=== PATIENT | male | born 1950 | race Caucasian/White ===

== ENCOUNTER → 2017-05-24 | Outpatient (CLI) | payer OTHER ==
--- NOTE | 2017-05-24 10:27 | US ---
EXAMINATION TYPE: US abdomen complete DATE OF EXAM: 05/24/2017 COMPARISON: 03/24/2016 CLINICAL HISTORY: 66-year-old male R93.429 Abnormal radiologic findings on diagnostic. TECHNIQUE: Multiple sonographic images of the abdomen were obtained. FINDINGS: LICENSED PRACTICAL NURSE NOTES: Extensive overlying bowel gas Liver Length: 12.7 cm Gallbladder Wall: 0.3 cm CBD: 0.3 cm Spleen: 7.8 cm Right Kidney: 11.9 x 4.4 x 6.1 cm Left Kidney: 10.9 x 5.0 x 5.2 cm Pancreas: Obscured by bowel gas Liver: left lobe obscured by overlying bowel gas. The right lobe shows normal homogeneous echotextur e without focal lesion. Gallbladder: No abnormal gallbladder distention, wall thickening, pericholecystic fluid, or shadowin g calculi. Evidence for sonographic Garcia's sign: No CBD: wnl Spleen: not well visualized due to overlying bowel gas and position Right Kidney: No hydronephrosis. There is a 5.1 x 5.3 x 4.6 cm cyst in the upper pole with thin inter nal septation. This measured up to 5 cm on 03/24/2016 and 5.9 cm on 09/20/2016. The calcifications seen on CT are not as appreciable on ultrasound. There is a smaller 1 cm cortical cyst at the lower pole. Left Kidney: No hydronephrosis Upper IVC: wnl Abd Aorta: proximal portion not well seen, distal portion and bifurcation obscured by bowel gas IMPRESSION: 1. Bosniak class IIF, 5.3 cm right upper pole renal cyst. This has been stable since 03/24/2016. Guidel jules recommend subsequent yearly follow-up for 5 years. 2. Suboptimal visualization of the left hepatic lobe, distal abdominal aorta, and pancreas.
== END ==
LOC: RADUSWWP 08:13
PROVIDERS: ATTEND Family Medicine
DX: N28.1 Cyst of kidney, acquired (principal)
CPT/HCPCS: 76700

== ENCOUNTER → 2018-05-08 | Outpatient (CLI) | payer OTHER ==
--- NOTE | 2018-05-08 15:37 | US ---
EXAMINATION TYPE: US kidneys/renal and bladder DATE OF EXAM: 05/08/2018 COMPARISON: US 05/24/2017 CLINICAL HISTORY: I70.213Atherosclerosis, N28.1 Kidney cyst. EXAM MEASUREMENTS: Right Kidney: 11.6 x 6.4 x 5.5 cm Left Kidney: 10.4 x 5.4 x 5.1 cm Post Void Residual Volume: 6.7 mL Right Kidney: Septated cyst with echogenic maciel = 5.9 x 5.8 x 5.1 cm . This previously measured 5.1 x 5.3 x 4.6 cm on the exam of 05/24/2017. Left Kidney: wnl Bladder: wnl Bilateral Jets seen: Yes Normal Post Void Residual: Yes There is no evidence for hydronephrosis at this point in time. No nephrolithiasis is seen. The ur inary bladder is anechoic. Bilateral ureteral jets are seen. Splenic mass noted = 5.6x 6.7 x 5.4 cm. This is complex in echogenicity with multiple internal septat ions. IMPRESSION: 1. New complex splenic mass. This was not present on the prior CT of 09/20/2016. Initially further carla luation with three-phase enhanced CT is recommended to assess for enhancement. This could be neoplast ic or posttraumatic in the setting of prior injury. 2. Interval growth of the Bosniak IIF right renal cystic mass. Evaluation of septal enhancement can a lso be made on the above recommended CT. If there are concerning features at that time biopsy would b e recommended.
== END | disposition home or self-care (01) ==
LOC: RADUSWWP 08:48
DX: N28.89 Other specified disorders of kidney and ureter (principal); I70.213 Atherosclerosis of native arteries of extremities with intermittent claudication, bilateral legs
CPT/HCPCS: 76770; 93923

== ENCOUNTER → 2018-05-23 | Outpatient (CLI) | payer OTHER ==
--- NOTE | 2018-05-24 06:54 | CT ---
EXAMINATION TYPE: CT abdomen pelvis wo/w con DATE OF EXAM: 05/23/2018 COMPARISON: Prior CT abdomen and pelvis September 20, 2016 HISTORY: Right kidney cyst CT DLP: 1247.9 mGycm, Automated Exposure Control for Dose Reduction was Utilized. CONTRAST: CT scan of the abdomen and pelvis is performed without oral and without and with IV Contrast, patient injected with 100 mL of Isovue 300. FINDINGS: LUNG BASES: There is calcified 1.0 cm nodule or granuloma posteriorly in the right lung base axial im age 5 redemonstrated. Small to tiny anterior pericardial effusion axial image 1 there is slightly mor e prominent versus prior. There is partial visualization of three-vessel coronary artery calcificatio n which is noted marker for coronary artery disease. LIVER/GB: No significant abnormality is appreciated. PANCREAS: No significant abnormality is seen. SPLEEN: Centrally in the spleen there is new hypodense 5.3 x 3.5 cm area of predominantly nonenhancem ent, some areas of linear enhancement that are isodense to the surrounding spleen are noted. One must consider vascular insult or infarct to the central aspect of the spleen as possible etiology. ADRENALS: Slight thickening to both adrenal glands left worse than right is redemonstrated and stable favoring benign hyperplasia. KIDNEYS: Noncontrast images show central vascular calcifications in the left kidney. No definitive ne phrolithiasis. Post contrast images show symmetric cortical medullary uptake and excretion. There are new areas of cortical scarring in the left kidney mid and lower pole level appreciated on coronal im ages. Small areas of cortical scarring suspected right kidney for example lower pole level coronal im age 48 new from prior. There is redemonstration of dominant partially exophytic thin-walled cystic le zafar mid pole level right kidney measuring 5.8 x 5.6 cm on axial image 33 with some calcified thin se ptation anteriorly. No suspicious enhancement or nodularity identified. There are additional few smal l subcentimeter hypodense lesions scattered throughout both kidneys too small to further characterize but presumed benign. BOWEL: Diverticula are scattered throughout the left and proximal sigmoid colon. No CT evidence for a cute diverticulitis. PROSTATE/SEMINAL VESICLES: No gross abnormality seen. LYMPH NODES: No greater than 1cm abdominal or pelvic lymph nodes are appreciated. OSSEOUS STRUCTURES: There is moderate multilevel disc space narrowing mid to lower lumbar spine with vacuum disc phenomenon L5-S1 level. Some facet arthropathy lower lumbar levels is seen. OTHER: There is moderate to severe calcified plaque of the mid to distal abdominal aorta extending in to pelvic branch vessels. 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 IMPRESSION: 1. Stable appearance of partially exophytic thin-walled 5.8 cm cyst mid pole level right kidney with thin calcified septations anteriorly. Bosniak 2 or 2F lesion because of size. No new worrisome solid or cystic renal mass. 2. Note is made of new areas of infarction at several levels in the bilateral kidneys right worse on left and likely infarction or liquefactive necrosis involving the central spleen. One must exclude th romboembolic disease or product of moderate to severe atherosclerotic change. Further clinical workup advised.
== END | disposition home or self-care (01) ==
LOC: RADCTMAIN 14:59
PROVIDERS: ATTEND Physician Assistant Medical
DX: N28.0 Ischemia and infarction of kidney (principal); N28.1 Cyst of kidney, acquired; D73.9 Disease of spleen, unspecified
CPT/HCPCS: 74178; Q9967

== ENCOUNTER 2018-10-04 10:03 | Inpatient (IN) | payer MEDICARE, OTHER ==
[2018-10-04] MEDS ORDERED: LIDOCAINE 2% SYG (PF) 100 MG/5 ML IV STA (10:08)
[2018-10-04] MEDS ORDERED: MIDAZOLAM 1 MG/ML 5 ML VIAL IV STA (10:09)
[2018-10-04] MEDS ORDERED: SUCCINYLCHOLINE CHLORIDE VIAL 200 MG/10 ML VIAL IV STA (10:10)
[2018-10-04] MEDS ORDERED: SODIUM CHLORIDE 0.9% 1,000 ML IV STA (10:11)
[2018-10-04] MEDS ORDERED: levETIRAcetam IV 1,000 MG in SALINE 1 100ML.BAG IVPB STA (10:13)
[2018-10-04] MEDS ORDERED: PROPOFOL 1,000 MG in EMPTY BAG 1 BAG IV SCH (10:15)
--- NOTE | 2018-10-04 10:21 | ED ---
Altered Mental Status HPI - General Stated Complaint: unresponsive Time Seen by Provider: 10/04/18 10:11 Source: EMS, RN notes reviewed, old records reviewed Mode of arrival: EMS Limitations: altered mental status - History of Present Illness Initial Comments: This is a 68-year-old male presents to the ER today for evaluation regarding altered mental status. Patient is unresponsive. Brought in by EMS, per EMS patient was found having seizure-like activity. Josiah Helms window, there is able to extricate him from the morning and bring him to the emergency department. No history is known from this patient. MD Complaint: altered mental status -: minutes(s) Severity: severe Consistency of Symptoms: constant Context: seizure disorder, unknown Associated Symptoms: denies other symptoms, weakness Treatments Prior to Arrival: IV fluid, oxygen - Related Data Home Medications Medication Instructions Recorded Confirmed Acetaminophen Tab [Tylenol] 1,000 mg PO Q6H PRN 05/12/16 10/04/18 Albuterol Inhaler [Ventolin Hfa 2 puff INHALATION RT-Q6H PRN 05/12/16 10/04/18 Inhaler] Budesonide/Formoterol Fumarate 2 puff INHALATION RT-BID 05/12/16 10/04/18 [Symbicort 160-4.5 Mcg Inhaler] Carvedilol [Coreg] 6.25 mg PO BID 05/12/16 10/04/18 Ipratropium-Albuterol Nebulize 3 ml INHALATION RT-Q6H PRN 05/12/16 10/04/18 [Duoneb 0.5 mg-3 mg/3 ml Soln] Simvastatin [Zocor] 20 mg PO DAILY 05/12/16 10/04/18 Valsartan [Diovan] 40 mg PO DAILY 05/12/16 10/04/18 Pantoprazole Sodium [Protonix] 40 mg PO DAILY 10/04/18 10/04/18 Allergies Allergy/AdvReac Type Severity Reaction Status Date / Time No Known Allergies Allergy Verified 10/04/18 11:10 Review of Systems ROS Statement: Those systems with pertinent positive or pertinent negative responses have been documented in the HPI. ROS Other: All systems not noted in ROS Statement are negative. Past Medical History Past Medical History: COPD, Hyperlipidemia, Hypertension, Myocardial Infarction ([place]) History of Any Multi-Drug Resistant Organisms: None Reported Past Surgical History: Heart Catheterization, Heart Catheterization With Stent Past Psychological History: PTSD Smoking Status: Heavy tobacco smoker Past Alcohol Use History: Occasional Past Drug Use History: None Reported General Exam Limitations: altered mental status General appearance: obtunded, in distress Head exam: Present: atraumatic, normocephalic, normal inspection Eye exam: Present: normal appearance, PERRL, EOMI. Absent: scleral icterus, conjunctival injection, periorbital swelling Pupils: Present: other (Left Pupil is dilated right pupil reactive) ENT exam: Present: normal exam, mucous membranes moist Neck exam: Present: normal inspection. Absent: tenderness, meningismus, lymphadenopathy Respiratory exam: Present: normal lung sounds bilaterally. Absent: respiratory distress, wheezes, rales, rhonchi, stridor Cardiovascular Exam: Present: normal rhythm, tachycardia, normal heart sounds. Absent: systolic murmur, diastolic murmur, rubs, gallop, clicks GI/Abdominal exam: Present: soft, normal bowel sounds. Absent: distended, tenderness, guarding, rebound, rigid Extremities exam: Present: normal inspection, full ROM, normal capillary refill. Absent: tenderness, pedal edema, joint swelling, calf tenderness Back exam: Present: normal inspection Neurological exam: Present: alert, oriented X3, CN II-XII intact Psychiatric exam: Present: normal affect, normal mood Skin exam: Present: warm, dry, intact, normal color. Absent: rash Course Vital Signs 10/04/18 10/04/18 10/04/18 10:03 10:07 10:12 Temperature 97.3 F L Pulse Rate 110 H 95 106 H Respiratory 6 L 24 14 Rate Blood Pressure 173/96 224/146 O2 Sat by Pulse 98 Oximetry 10/04/18 10/04/18 10/04/18 10:20 10:30 10:38 Temperature Pulse Rate 102 H 110 H Respiratory 14 14 Rate Blood Pressure 184/121 184/121 170/92 O2 Sat by Pulse 97 99 Oximetry 10/04/18 10/04/18 10/04/18 10:45 11:00 11:30 Temperature Pulse Rate 108 H 111 H 106 H Respiratory 16 16 15 Rate Blood Pressure 168/100 168/100 109/93 O2 Sat by Pulse 100 99 99 Oximetry 10/04/18 10/04/18 10/04/18 12:00 12:26 13:10 Temperature Pulse Rate 109 H 109 H 110 H Respiratory 17 17 16 Rate Blood Pressure 149/103 149/103 151/95 O2 Sat by Pulse 100 100 99 Oximetry 10/04/18 10/04/18 13:15 13:25 Temperature Pulse Rate 109 H 108 H Respiratory 16 18 Rate Blood Pressure 165/95 153/82 O2 Sat by Pulse 99 99 Oximetry - Reevaluation(s) Reevaluation #1: 10/04/18 10:21 Medical record is reviewed noncontributory Reevaluation #2: 10/04/18 13:44 Patient will be admitted for further evaluation, neurological consultation and evaluation. Reevaluation #3: 10/04/18 13:44 Spoke with family at length, questions are answered, Procedures - Intubation Time Out Performed: Yes Sedative: Versed Paralytic: Succinylcholine Laryngoscope: Liz Size: 4 ET Tube Size: 8 ET Tube Uncuffed: No Tube Secured Location: teeth Tube Placement Confirmation: visualized tube passing through cords, equal breath sounds bilaterally Patient Tolerated Procedure: well Intubation Complications: none Medical Decision Making - Medical Decision Making 68 male the ER for evaluation of likely seizure per bystander, and unresponsive episode with likely prolonged postictal, patient elevated for airway protection , patient to be admitted ICU for evaluation and management - Lab Data Result diagrams: 10/04/18 10:20 10/04/18 10:20 Lab Results 10/04/18 10/04/18 10/04/18 Range/Units 10:20 10:20 10:20 WBC (3.8-10.6) k/uL RBC (4.30-5.90) m/uL Hgb (13.0-17.5) gm/dL Hct (39.0-53.0) % MCV (80.0-100.0) fL MCH (25.0-35.0) pg MCHC (31.0-37.0) g/dL RDW (11.5-15.5) % Plt Count (150-450) k/uL Neutrophils % % Lymphocytes % % Monocytes % % Eosinophils % % Basophils % % Neutrophils # (1.3-7.7) k/uL Lymphocytes # (1.0-4.8) k/uL Monocytes # (0-1.0) k/uL Eosinophils # (0-0.7) k/uL Basophils # (0-0.2) k/uL PT (9.0-12.0) sec INR (<1.2) APTT (22.0-30.0) sec Sample Site ABG pH (7.35-7.45) ABG pCO2 (35-45) mmHg ABG pO2 (83-108) mmHg ABG HCO3 (21-25) mmol/L ABG Total CO2 (19-24) mmol/L ABG O2 Saturation (94-97) % ABG Base Excess mmol/L Harshad Test FiO2 % Sodium 137 (137-145) mmol/L Potassium 5.1 (3.5-5.1) mmol/L Chloride 104 (98-107) mmol/L Carbon Dioxide 22 (22-30) mmol/L Anion Gap 11 mmol/L BUN 7 L (9-20) mg/dL Creatinine 0.70 (0.66-1.25) mg/dL Est GFR (CKD-EPI)AfAm >90 (>60 ml/min/1.73 sqM) Est GFR (CKD-EPI)NonAf >90 (>60 ml/min/1.73 sqM) Glucose 98 (74-99) mg/dL Plasma Lactic Acid Roland 2.0 (0.7-2.0) mmol/L Calcium 9.3 (8.4-10.2) mg/dL Phosphorus 3.8 (2.5-4.5) mg/dL Magnesium 2.0 (1.6-2.3) mg/dL Total Bilirubin 0.6 (0.2-1.3) mg/dL AST 16 L (17-59) U/L ALT 16 L (21-72) U/L Alkaline Phosphatase 83 (38-126) U/L Ammonia 24 (<30) umol/L Total Creatine Kinase 65 (55-170) U/L CK-MB (CK-2) 1.3 (0.0-2.4) ng/mL CK-MB (CK-2) Rel Index 2.0 Troponin I <0.012 (0.000-0.034) ng/mL NT-Pro-B Natriuret Pep pg/mL Total Protein 8.0 (6.3-8.2) g/dL Albumin 4.4 (3.5-5.0) g/dL Urine Color Urine Appearance (Clear) Urine pH (5.0-8.0) Ur Specific [place] (1.001-1.035) Urine Protein (Negative) Urine Glucose (UA) (Negative) Urine Ketones (Negative) Urine Blood (Negative) Urine Nitrite (Negative) Urine Bilirubin (Negative) Urine Urobilinogen (<2.0) mg/dL Ur Leukocyte Esterase (Negative) Urine RBC (0-5) /hpf Urine WBC (0-5) /hpf Urine Bacteria (None) /hpf Urine Opiates Screen (NotDetected) Ur Oxycodone Screen (NotDetected) Urine Methadone Screen (NotDetected) Ur Propoxyphene Screen (NotDetected) Ur Barbiturates Screen (NotDetected) U Tricyclic Antidepress (NotDetected) Ur Phencyclidine Scrn (NotDetected) Ur Amphetamines Screen (NotDetected) U Methamphetamines Scrn (NotDetected) U Benzodiazepines Scrn (NotDetected) Urine Cocaine Screen (NotDetected) U Marijuana (THC) Screen (NotDetected) Serum Alcohol <10 mg/dL 10/04/18 10/04/18 10/04/18 Range/Units 10:20 10:20 10:20 WBC 9.2 (3.8-10.6) k/uL RBC 5.04 (4.30-5.90) m/uL Hgb 14.6 (13.0-17.5) gm/dL Hct 45.2 (39.0-53.0) % MCV 89.7 (80.0-100.0) fL MCH 29.0 (25.0-35.0) pg MCHC 32.4 (31.0-37.0) g/dL RDW 14.8 (11.5-15.5) % Plt Count 273 (150-450) k/uL Neutrophils % 62 % Lymphocytes % 26 % Monocytes % 8 % Eosinophils % 2 % Basophils % 1 % Neutrophils # 5.6 (1.3-7.7) k/uL Lymphocytes # 2.4 (1.0-4.8) k/uL Monocytes # 0.8 (0-1.0) k/uL Eosinophils # 0.2 (0-0.7) k/uL Basophils # 0.1 (0-0.2) k/uL PT 9.7 (9.0-12.0) sec INR 0.9 (<1.2) APTT 26.6 (22.0-30.0) sec Sample Site ABG pH (7.35-7.45) ABG pCO2 (35-45) mmHg ABG pO2 (83-108) mmHg ABG HCO3 (21-25) mmol/L ABG Total CO2 (19-24) mmol/L ABG O2 Saturation (94-97) % ABG Base Excess mmol/L Harshad Test FiO2 % Sodium (137-145) mmol/L Potassium (3.5-5.1) mmol/L Chloride (98-107) mmol/L Carbon Dioxide (22-30) mmol/L Anion Gap mmol/L BUN (9-20) mg/dL Creatinine (0.66-1.25) mg/dL Est GFR (CKD-EPI)AfAm (>60 ml/min/1.73 sqM) Est GFR (CKD-EPI)NonAf (>60 ml/min/1.73 sqM) Glucose (74-99) mg/dL Plasma Lactic Acid Roland (0.7-2.0) mmol/L Calcium (8.4-10.2) mg/dL Phosphorus (2.5-4.5) mg/dL Magnesium (1.6-2.3) mg/dL Total Bilirubin (0.2-1.3) mg/dL AST (17-59) U/L ALT (21-72) U/L Alkaline Phosphatase (38-126) U/L Ammonia (<30) umol/L Total Creatine Kinase (55-170) U/L CK-MB (CK-2) (0.0-2.4) ng/mL CK-MB (CK-2) Rel Index Troponin I (0.000-0.034) ng/mL NT-Pro-B Natriuret Pep 215 pg/mL Total Protein (6.3-8.2) g/dL Albumin (3.5-5.0) g/dL Urine Color Urine Appearance (Clear) Urine pH (5.0-8.0) Ur Specific [place] (1.001-1.035) Urine Protein (Negative) Urine Glucose (UA) (Negative) Urine Ketones (Negative) Urine Blood (Negative) Urine Nitrite (Negative) Urine Bilirubin (Negative) Urine Urobilinogen (<2.0) mg/dL Ur Leukocyte Esterase (Negative) Urine RBC (0-5) /hpf Urine WBC (0-5) /hpf Urine Bacteria (None) /hpf Urine Opiates Screen (NotDetected) Ur Oxycodone Screen (NotDetected) Urine Methadone Screen (NotDetected) Ur Propoxyphene Screen (NotDetected) Ur Barbiturates Screen (NotDetected) U Tricyclic Antidepress (NotDetected) Ur Phencyclidine Scrn (NotDetected) Ur Amphetamines Screen (NotDetected) U Methamphetamines Scrn (NotDetected) U Benzodiazepines Scrn (NotDetected) Urine Cocaine Screen (NotDetected) U Marijuana (THC) Screen (NotDetected) Serum Alcohol mg/dL 10/04/18 10/04/18 Range/Units 11:00 12:43 WBC (3.8-10.6) k/uL RBC (4.30-5.90) m/uL Hgb (13.0-17.5) gm/dL Hct (39.0-53.0) % MCV (80.0-100.0) fL MCH (25.0-35.0) pg MCHC (31.0-37.0) g/dL RDW (11.5-15.5) % Plt Count (150-450) k/uL Neutrophils % % Lymphocytes % % Monocytes % % Eosinophils % % Basophils % % Neutrophils # (1.3-7.7) k/uL Lymphocytes # (1.0-4.8) k/uL Monocytes # (0-1.0) k/uL Eosinophils # (0-0.7) k/uL Basophils # (0-0.2) k/uL PT (9.0-12.0) sec INR (<1.2) APTT (22.0-30.0) sec Sample Site rrad ABG pH 7.40 (7.35-7.45) ABG pCO2 38 (35-45) mmHg ABG pO2 >400 H (83-108) mmHg ABG HCO3 23 (21-25) mmol/L ABG Total CO2 25 H (19-24) mmol/L ABG O2 Saturation 100.0 H (94-97) % ABG Base Excess -1.4 mmol/L Harshad Test Yes FiO2 100 % Sodium (137-145) mmol/L Potassium (3.5-5.1) mmol/L Chloride (98-107) mmol/L Carbon Dioxide (22-30) mmol/L Anion Gap mmol/L BUN (9-20) mg/dL Creatinine (0.66-1.25) mg/dL Est GFR (CKD-EPI)AfAm (>60 ml/min/1.73 sqM) Est GFR (CKD-EPI)NonAf (>60 ml/min/1.73 sqM) Glucose (74-99) mg/dL Plasma Lactic Acid Roland (0.7-2.0) mmol/L Calcium (8.4-10.2) mg/dL Phosphorus (2.5-4.5) mg/dL Magnesium (1.6-2.3) mg/dL Total Bilirubin (0.2-1.3) mg/dL AST (17-59) U/L ALT (21-72) U/L Alkaline Phosphatase (38-126) U/L Ammonia (<30) umol/L Total Creatine Kinase (55-170) U/L CK-MB (CK-2) (0.0-2.4) ng/mL CK-MB (CK-2) Rel Index Troponin I (0.000-0.034) ng/mL NT-Pro-B Natriuret Pep pg/mL Total Protein (6.3-8.2) g/dL Albumin (3.5-5.0) g/dL Urine Color Light Yellow Urine Appearance Clear (Clear) Urine pH 6.5 (5.0-8.0) Ur Specific [place] 1.003 (1.001-1.035) Urine Protein Negative (Negative) Urine Glucose (UA) Negative (Negative) Urine Ketones Negative (Negative) Urine Blood Trace H (Negative) Urine Nitrite Negative (Negative) Urine Bilirubin Negative (Negative) Urine Urobilinogen <2.0 (<2.0) mg/dL Ur Leukocyte Esterase Negative (Negative) Urine RBC 1 (0-5) /hpf Urine WBC <1 (0-5) /hpf Urine Bacteria Rare H (None) /hpf Urine Opiates Screen Not Detected (NotDetected) Ur Oxycodone Screen Not Detected (NotDetected) Urine Methadone Screen Not Detected (NotDetected) Ur Propoxyphene Screen Not Detected (NotDetected) Ur Barbiturates Screen Not Detected (NotDetected) U Tricyclic Antidepress Not Detected (NotDetected) Ur Phencyclidine Scrn Not Detected (NotDetected) Ur Amphetamines Screen Not Detected (NotDetected) U Methamphetamines Scrn Not Detected (NotDetected) U Benzodiazepines Scrn Not Detected (NotDetected) Urine Cocaine Screen Not Detected (NotDetected) U Marijuana (THC) Screen Not Detected (NotDetected) Serum Alcohol mg/dL - EKG Data -: EKG Interpreted by Me (EKG shows sinus tachycardia rate of 112, DE 136, QRS 70, QTc 458) - Radiology Data Radiology results: report reviewed (CT brain negative for acute disease CTA head and neck, negative, chest x-ray shows positive intubation), image reviewed Critical Care Time Critical Care Time: Yes Total Critical Care Time: 65 Disposition Clinical Impression: Acute respiratory failure, Seizure Disposition: ADMITTED IP TO THIS [facility] Condition: Critical Is patient prescribed a controlled substance at d/c from ED?: No
--- NOTE | 2018-10-04 10:35 | XR ---
EXAMINATION TYPE: XR chest 1V portable DATE OF EXAM: 10/04/2018 COMPARISON: Chest x-ray May 12, 2016 HISTORY: Unresponsive had to be intubated. TECHNIQUE: Single AP portable frontal view of the chest is obtained. FINDINGS: There is new endotracheal tube with tip at superior aortic knob, approximately 4 to 5 cm ab ove the melissa. There is chronic parenchymal change without suspicious focal air space opacity, pleu ral effusion, or pneumothorax seen. The cardiac silhouette size is upper limits of normal with ather osclerotic thoracic aorta. The osseous structures are somewhat demineralized. IMPRESSION: 1. New endotracheal tube satisfactory in position. 2. Chronic parenchyma changes without acute pulmonary process.
--- NOTE | 2018-10-04 10:50 | CT ---
EXAMINATION TYPE: CT brain wo con DATE OF EXAM: 10/04/2018 COMPARISON: 05/12/2016 HISTORY: unresponsive CT DLP: 1234.[address] of the brain was performed. The ventricles, basal cisterns and sulci overlying the cerebral convexities demonstrate mild enlargem ent. Remote insult right basal ganglia. There is no evidence for intracranial hemorrhage or sulcal effacement. There is decreased attenuation about the periventricular white matter and deep white matter of both c erebral hemispheres, compatible with chronic small vessel ischemia. Differential diagnosis does inclu de demyelination. No mass effects are seen.No midline shift. Osseous calvarium is intact. If symptoms persist consider MRI. IMPRESSION: 1. Age related atrophic and chronic small vessel ischemic change without acute intracranial process s een at this time.
[2018-10-04 11:04] LABS: Basophils # (A) 0.1 k/uL (0-0.2); Basophils % (A) 1 %; Eosinophils # (A) 0.2 k/uL (0-0.7); Eosinophils % (A) 2 %; HCT 45.2 % (39.0-53.0); HGB 14.6 gm/dL (13.0-17.5); Lymphocytes # (A) 2.4 k/uL (1.0-4.8); Lymphocytes % (A) 26 %; MCHC 32.4 g/dL (31.0-37.0); MCV 89.7 fL (80.0-100.0); Mean Platelet Volume 7.2; Monocytes # (A) 0.8 k/uL (0-1.0); Monocytes % (A) 8 %; Neutrophils # (A) 5.6 k/uL (1.3-7.7); Neutrophils % (A) 62 %; Platelet Count 273 k/uL (150-450); RBC 5.04 m/uL (4.30-5.90); RDW 14.8 % (11.5-15.5); WBC 9.2 k/uL (3.8-10.6)
[2018-10-04 11:13] LABS: ALT 16 U/L (21-72); AST 16 U/L (17-59); Albumin 4.4 g/dL (3.5-5.0); Alcohol <10 mg/dL; Alkaline Phosphatase 83 U/L (38-126); Anion Gap 11 mmol/L; Blood Urea Nitrogen 7 mg/dL (9-20); Calcium 9.3 mg/dL (8.4-10.2); Carbon Dioxide 22 mmol/L (22-30); Chloride 104 mmol/L (98-107); Glucose 98 mg/dL (74-99); Phosphorus 3.8 mg/dL (2.5-4.5); Potassium 5.1 mmol/L (3.5-5.1); Sodium 137 mmol/L (137-145); Total Bilirubin 0.6 mg/dL (0.2-1.3)
[2018-10-04 11:21] LABS: INR 0.9 (<1.2); Partial Thromboplastin Time 26.6 sec (22.0-30.0); Prothrombin Time 9.7 sec (9.0-12.0)
[2018-10-04 11:25] LABS: Creatine Kinase 65 U/L (55-170)
[2018-10-04 11:38] LABS: Creatine Kinase MB 1.3 ng/mL (0.0-2.4); Troponin I <0.012 ng/mL (0.000-0.034)
[2018-10-04 11:48] LABS: Appearance,Urine Clear (Clear); Bacteria,Urine Rare /hpf; Bilirubin,Urine Negative (Negative); Blood,Urine Trace (Negative); Color,Urine Light Yellow; Glucose,Urine (UA) Negative (Negative); Ketones,Urine Negative (Negative); Leukocyte Esterase,Urine Negative (Negative); Nitrite,Urine Negative (Negative); PH, Urine 6.5 (5.0-8.0); Protein,Urine Negative (Negative); RBC,Urine 1 /hpf (0-5); Specific Gravity,Urine 1.003 (1.001-1.035); Urobilinogen,Urine <2.0 mg/dL (<2.0); WBC,Urine <1 /hpf (0-5)
[2018-10-04 11:50] LABS: Amphetamine Screen,Urine Not Detected (NotDetected); Barbiturate Screen,Urine Not Detected (NotDetected); Benzodiazepines Screen,Urine Not Detected (NotDetected); Cocaine Screen,Urine Not Detected (NotDetected); Methadone Screen, Urine Not Detected (NotDetected); Opiate Screen,Urine Not Detected (NotDetected); Oxycodone Screen, Urine Not Detected (NotDetected); Phencyclidine Screen,Urine Not Detected (NotDetected); Tricyclic Antidepressant,Urine Not Detected (NotDetected); Urn Cannabinoid Scrn Not Detected (NotDetected)
[2018-10-04 12:49] LABS: ABG Base Excess -1.4 mmol/L; ABG HCO3 23 mmol/L (21-25); ABG PCO2 38 mmHg (35-45); ABG PO2 >400 mmHg (83-108); ABG TCO2 25 mmol/L (19-24)
[2018-10-04] MEDS ORDERED: NALOXONE 0.4 MG/ML 1 ML VIAL IV PRN (13:32)
[2018-10-04] MEDS ORDERED: IPRATROPIUM-ALBUTEROL 3 ML NEB INHALATION PRN (13:32)
--- NOTE | 2018-10-04 14:16 | CT ---
EXAMINATION TYPE: CT angio head neck DATE OF EXAM: 10/04/2018 HISTORY: unresponsive. COMPARISON: NONE CT DLP: 435.7 mGycm. Automated Exposure Control for Dose Reduction was Utilized. TECHNIQUE: CTA scan of the head and neck are performed with IV Contrast, patient injected with 60 mL of Isovue 370, axial images are obtained, coronal and sagittal reformatted images are reviewed. Thre e-D reconstructed images are created on an independent workstation and reviewed. FINDINGS: Carotid/Vascular Structures: There is mild to moderate calcified plaque in aortic arch. Normal three- vessel origin from aortic arch is present. There is no significant plaque or stenosis in the subclavi an arteries bilaterally. The right common carotid artery shows normal origin from the right brachioce phalic artery. There is mild peripheral plaque in the distal right common carotid artery. There is mo re moderate calcified plaque in the proximal and mid right internal carotid artery without significan t stenosis identified. There is mild calcified plaque supraclinoid segment. There is patent right ext ernal carotid artery with mild to moderate mixed plaque at origin but no significant stenosis identif ied. There is mild peripheral plaque at origin of left common carotid artery. There is mild to minimal per ipheral plaque in the mid to distal left common carotid artery. There is more moderate calcified plaq ue at left carotid bulb extending into proximal internal and external carotid arteries. No significan t stenosis is present. Moderate calcified plaque supraclinoid segment is seen without significant yolanda nosis. There is patent external carotid artery without significant plaque or stenosis. There is dominant left vertebral artery. Right vertebral artery is not patent to basilar junction. Th ere are hypoplastic posterior communicating arteries seen bilaterally. No aneurysmal change is seen. There is poor visualization of left P1 segment with satisfactory filling of left P2 segment. There is patent anterior communicating artery. There is no significant focal stenosis or aneurysmal change in the anterior circulation. Other: Moderate mucosal thickening involving ethmoid sinuses bilaterally is seen. There is moderate m ucosal thickening in the left maxillary sinus. There is dependent fluid in bilateral maxillary sinuse s. There is old infarct right basal ganglia and external capsule redemonstrated with ex vacuo dilatation of adjacent right frontal horn. Endotracheal tube is seen terminating at level of arch. There is retained secretions in the oral phar yngeal and hypopharyngeal airway. Eccentric right-sided soft tissue thickening is present. Consider f ollow up after intubation. There is background mild emphysematous change. IMPRESSION: 1. No significant focal stenosis in common or internal carotid arteries bilaterally. 2. No aneurysmal change at level of [place].
[2018-10-04 14:18] LABS: Acetaminophen <10.0 ug/mL; Salicylate <1.0 mg/dL
[2018-10-04 14:31] LABS: Glucose,Whole Blood 86 mg/dL (75-99)
[2018-10-04] MEDS: DEXTROSE 5%-0.45% NACL 1,000 ML IV SCH (15:36)
--- NOTE | 2018-10-04 17:52 | CONS ---
CONSULTATION DATE OF SERVICE: 10/04/2018 REASON FOR CONSULTATION: This is a 68-year-old male who I am asked to see for ventilator management and ICU care. This is a pulmonary consultation Dr. Boyce dated 10/04/2018. HISTORY OF PRESENT ILLNESS: This is a patient who was brought in with mental status changes from the outside. He was apparently in line at the local coffee shop and apparently when he drove up to the window to receive his coffee or whatever he bought, the patient was found to be seizing in the car. EMS was called. They had a difficult time extricating him from the car because his car was up against the takeout window. Nonetheless, they assisted him with ventilations. He was brought into the emergency room where he was intubated by the ER doctor. The patient is now back here up in the ICU. According to the ER physician, the patient was poorly responsive in the emergency department. No other history could be obtained from family members ore anything like that as it relates to how he was doing before this. His current situation in the ICU is that his arterial blood gases were excellent. He is currently on the volume assist-control mode with a rate of 16, tidal volume 500, FiO2 50%, and no PEEP. Blood gases show a PaO2 400 PA CO2 of 38, the pH 7.40. That was on 100%. He is getting D5 W with half-normal saline at 83 mL an hour, Diprivan at 20 mcg/kg per minute. His drug screen was apparently negative. HOME MEDICATIONS: Include Tylenol and a Ventolin inhaler. He is also on Symbicort, Coreg, updrafts with DuoNeb, simvastatin, valsartan, and Protonix. Based on these medications, it would appear that he probably has COPD and likely has hypertension and also has hyperlipidemia and possibly gastroesophageal reflux disease. ALLERGIES: Denied. PAST MEDICAL HISTORY: Includes COPD, hyperlipidemia, hypertension, myocardial infarction, gastroesophageal reflux disease. SURGICAL HISTORY: Includes heart catheterization with stent placement. SOCIAL HISTORY: Positive for heavy tobacco use. Alcohol use is occasional. No illicit drug use. FAMILY HISTORY: Not known. REVIEW OF SYSTEMS: Cannot be obtained. PHYSICAL EXAMINATION: Current vital signs are reviewed. Temperature is 97.3, heart rate 108, respiratory rate 18, blood pressure 153/82, and saturations are 99% on 50% FiO2 without any PEEP. Appears in no acute distress. He has got an orally placed endotracheal tube and NG tube. HEENT examination is grossly unremarkable. Mucous membranes are moist. The left pupil is much larger than the right. There are sluggishly reactive. NECK: Supple. Full range of motion. No adenopathy. Cardiovascular examination reveals regular rhythm and rate. Heart rate is about 100 beats per minute. It is regular. S1, S2 normal. LUNGS: A few scattered rhonchi. Breath sounds equal bilaterally. No wheezes or crackles. ABDOMEN: Soft. Bowel sounds are heard. Extremities are intact. No cyanosis, clubbing, or edema. Skin without rash. Neurologic examination could not be assessed. The brain CT was negative. The angiography CT was negative. The chest x-ray was essentially normal. Labs are reviewed. CBC is completely normal. PT/INR PTT normal. Blood gases have been noted. Electrolyte profile and comprehensive metabolic profile look completely normal. Urine was negative. Drug screen was negative. Salicylates less than 1. Tylenol less than 10. Alcohol less than 10. MEDICATIONS: Current medications include Lovenox for DVT prophylaxis. Duo nebs q.4 around the clock, one dose of Keppra. Narcan p.r.n. and his IV. ASSESSMENT: 1. New onset seizure disorder with respiratory failure, requiring intubation, mechanical ventilation in the emergency room for severe mental status changes and hypoxemia. 2. History of hypertension. 3. Chronic obstructive pulmonary disease from previous tobacco use. 4. Hyperlipidemia. 5. History of myocardial infarction. 6. Previous heart catheterization with stent placement. 7. History of PTSD. 8. History of heavy tobacco use. 9. PLAN: The patient's brain scan was negative. The patient's chest x-ray looks good. We will wean propofol off. We will see if we can get the patient extubated. Neurology should be consulted for the new onset seizure. No additional recommendations are made. Labs look great. We will make sure he is on updrafts q.4 around the clock. He is already on GI, DVT prophylaxis. We will continue to follow. Hopefully early extubation. MMODL / ESTEPHANIEN: [id number] /
[2018-10-04] MEDS: ASPIRIN 300 MG SUPP RECTAL SCH (19:05)
[2018-10-04] MEDS: NICOTINE 21MG/24HR PATCH TRANSDERM SCH (19:06)
--- NOTE | 2018-10-04 19:10 | CONS ---
CONSULTATION DATE OF CONSULTATION: 10/04/2018 CHIEF COMPLAINT: Stroke and seizure. HISTORY OF PRESENT ILLNESS: Mr. Villa is a 68-year-old male, who is being evaluated by the neurology service for a witnessed seizure and possible stroke. The patient was in the drive- through at [facility] when the staff and other customers witnessed the patient having seizure-like activity. The patient's car was in park and he had pressed on the gas while having the jerking activity. EMS was called and he was transferred to [facility] emergency room for further workup and management. The patient was unresponsive off and initially was intubated to protect his airway. He was later extubated in the intensive care unit. A CT scan of the brain was done, which showed an old infarct involving the right basal ganglia along with generalized atrophy and small- vessel ischemic changes. A CT angiogram of the brain and neck were done which were normal. His CBC, cardiac enzymes, urinalysis, urine drug screen, and comprehensive metabolic profiles were reviewed and were all normal. At the time of my evaluation, the patient is in his intensive care unit bed. He is quite drowsy but is arousable and follows simple commands. He was started on Keppra 750 mg IV every 12 hours, and EEG has been ordered. His family is at bedside. They report that the patient has no previous history of seizures. PAST MEDICAL HISTORY: Stroke, chronic obstructive pulmonary disease, dyslipidemia, hypertension, myocardial infarction, posttraumatic stress disorder, history of heart catheterization with coronary artery stent placement. SOCIAL HISTORY: The patient is a current every day smoker. He occasionally drinks alcohol. There is no history of any drug use. FAMILY HISTORY: Noncontributory. HOME MEDICATIONS: Reviewed in the chart. ALLERGIES: No known drug allergies. REVIEW OF SYSTEM: Unable to obtain due to patient's mental status. PHYSICAL EXAM: Vital signs show a temperature of 97.3, pulse 108, respiration 18, blood pressure 153/82. GENERAL APPEARANCE: The patient is a well-developed male, who appears to be drowsy. HEENT: Normocephalic, atraumatic, left facial weakness is seen, his right eye has a downward and lateral gaze. Neck is supple with no masses felt. CARDIOVASCULAR: Regular rate and rhythm. ABDOMEN: Nontender nondistended. Extremities showed no edema or clubbing. Neurological exam: The patient is drowsy but arousable. He does follow commands appropriately. No obvious lateralizing weakness is seen in the extremities. Sensory exam was normal to light touch in all 4 extremities. No tremors or seizure-like activity is seen. Cranial nerve testing showed left facial weakness and right eye deviation laterally and downward. IMPRESSION: 1. Acute ischemic stroke, likely brainstem. 2. Single seizure, generalized tonic clonic type. 3. History of previous ischemic stroke, right basal ganglia. 4. Gaze palsy involving the right eye. 5. Left facial weakness. 6. Hypertension. 7. Dyslipidemia. 8. Tobacco dependence. RECOMMENDATIONS: The patient's neurological examination is abnormal as mentioned above. There is concerns for a brainstem infarct given his cranial nerve examination and drowsiness. His CT scan of the brain showed no acute findings and did show his old stroke. I will order an MRI/MRA of the brain. I will start him on aspirin 300 mg rectally daily. I will order a modified barium swallow study and will consult speech therapy. A fasting lipid panel and homocystine level will be ordered. An EEG is pending. As for his seizure, this was a single episode, but given his current state, I will keep him on Keppra 750 mg IV b.i.d. for now. Continue neuro checks. I will continue to follow with you. Further recommendations to follow. Thank you for allowing me to participate in the care of your patient. If you have any questions, please feel free to contact me. ALIA / MERCED: [id number] /
[2018-10-04] MEDS: CARVEDILOL 6.25 MG TAB PO SCH (19:18)
[2018-10-04] MEDS ORDERED: CHLORHEXIDINE GLUCONATE 15 ML CUP MUCOUS MEM SCH (21:00)
[2018-10-04] MEDS: ATORVASTATIN 80 MG TAB PO SCH (21:22)
[2018-10-04] MEDS: levETIRAcetam IV 750 MG in SODIUM CHLORIDE 0.9% 100 ML IVPB SCH (21:24)
[2018-10-05 05:10] LABS: Basophils % (A) 0 %; Eosinophils # (A) 0.1 k/uL (0-0.7); Eosinophils % (A) 1 %; HCT 40.7 % (39.0-53.0); HGB 13.1 gm/dL (13.0-17.5); Lymphocytes # (A) 1.8 k/uL (1.0-4.8); Lymphocytes % (A) 14 %; MCH 28.8 pg (25.0-35.0); MCHC 32.3 g/dL (31.0-37.0); MCV 89.3 fL (80.0-100.0); Mean Platelet Volume 7.4; Monocytes % (A) 8 %; Neutrophils # (A) 9.9 k/uL (1.3-7.7); Neutrophils % (A) 76 %; Platelet Count 249 k/uL (150-450); RBC 4.55 m/uL (4.30-5.90); RDW 14.7 % (11.5-15.5); WBC 13.1 k/uL (3.8-10.6)
[2018-10-05 05:21] LABS: ALT 18 U/L (21-72); AST 14 U/L (17-59); Albumin 3.4 g/dL (3.5-5.0); Alkaline Phosphatase 63 U/L (38-126); Anion Gap 6 mmol/L; Blood Urea Nitrogen 5 mg/dL (9-20); Calcium 8.9 mg/dL (8.4-10.2); Carbon Dioxide 23 mmol/L (22-30); Chloride 107 mmol/L (98-107); Cholesterol 142 mg/dL (<200); Glucose 98 mg/dL (74-99); HDL Cholesterol 37 mg/dL (40-60); LDL Cholesterol,Calculated 79 mg/dL (0-99); Phosphorus 3.5 mg/dL (2.5-4.5); Potassium 4.2 mmol/L (3.5-5.1); Sodium 136 mmol/L (137-145); Total Bilirubin 0.7 mg/dL (0.2-1.3); Total Protein 6.7 g/dL (6.3-8.2); Triglycerides 129 mg/dL (<150)
[2018-10-05] MEDS: CARVEDILOL 6.25 MG TAB PO SCH ×2 (08:48→17:04)
[2018-10-05] MEDS ORDERED: methylPREDNISolone ACETATE 80 MG/ML 1 ML VIAL IM STA (08:59)
[2018-10-05] MEDS: PANTOPRAZOLE 40 MG/10 ML VIAL IV SCH (09:22)
[2018-10-05] MEDS: levETIRAcetam IV 750 MG in SODIUM CHLORIDE 0.9% 100 ML IVPB SCH ×2 (09:22→21:29)
[2018-10-05] MEDS: ENOXAPARIN 40 MG/0.4 ML SYRINGE SQ SCH (09:22)
--- NOTE | 2018-10-05 09:24 | XR ---
EXAMINATION TYPE: XR chest 1V portable DATE OF EXAM: 10/05/2018 COMPARISON: 10/04/2018 HISTORY: ET tube TECHNIQUE: Single frontal view of the chest is obtained. FINDINGS: ET tube is been removed. There is a metallic density overlying the aorta indeterminate thomas ology and should be correlated clinically. There is no consolidation. There is no pleural effusion. T here is no pneumothorax. Hyperinflation suggests COPD. Heart size is normal diffuse osteopenia with a rthropathy of the shoulders. IMPRESSION: 1. No acute intrathoracic process. Vague 7 mm nodule left lung base may be related to superimposed st ructures. Recommend short-term follow-up PA and lateral views the chest. 2. There is a metallic density not seen on the previous exam overlying the aortic knob. This may be s uperficial to the patient. Correlate clinically to exclude other etiologies.
[2018-10-05] MEDS: NICOTINE 21MG/24HR PATCH TRANSDERM SCH (09:34)
[2018-10-05] MEDS: DEXTROSE 5%-0.45% NACL 1,000 ML IV SCH ×2 (09:36→21:31)
[2018-10-05] MEDS: ASPIRIN 325 MG TAB PO SCH (10:03)
--- NOTE | 2018-10-05 11:08 | PN ---
PROGRESS NOTE DATE OF SERVICE: 10/05/2018 This is a 68-year-old male that we were asked to see for ICU management and ventilator management. This is a 68-year-old male that was brought in from the outside. He was apparently at a line at the local coffee shop and apparently came to the drive-up window to receive his coffee and apparently developed a seizure. EMS was called. They extricated him from the vehicle and took him to the emergency room. He apparently had respiratory difficulty en route and received some assisted ventilations and once in the emergency room was intubated by the ER doctor. Here in the ICU, he was doing well. His gas exchange was excellent. His labs were good. His chest x-ray looks good and so therefore we gave him a sedation holiday off the propofol and did some weaning parameters and a cuff leak and he passed all of that and he was extubated yesterday. So he was admitted on the and extubated on the as well. His primary process was respiratory failure thought to be related to seizures. Anyway, the patient is doing much better. Currently, he is on 2 L by nasal cannula. He is getting D5 0.45 at 83 mL an hour. He was placed on Keppra for seizures. Neurology is involved. His chest x-ray looked fine. He is feeling much better. Does not really give much insight as to exactly what happened. He states he has not drunk any alcohol for 3 weeks. His drug screen was negative. Current vital signs are reviewed. His temperature is 98.4, heart rate is done 92, respiratory rate 15, blood pressure 124/75, mean 91 and 2 L saturation is 95%. Appears in no acute distress. He is oriented x3. HEENT examination is grossly unremarkable. Mucous membranes are moist. Nasal O2 in place. NECK: Supple. Full range of motion. No adenopathy, thyromegaly or neck vein distention. Cardiovascular examination reveals regular rhythm and rate. Heart rate about mid 90s. S1, S2 normal. No murmur. Lungs reveal a few scattered rhonchi. There is some expiratory wheezes as well. Breath sounds are diminished. There is slight prolongation. Abdomen is soft. Bowel sounds are heard. Extremities are intact. No cyanosis, clubbing, or edema. Microbiologic studies including urine and sputum evaluation is thus far negative. Labs are reviewed. White count 13.1, hemoglobin 13.1, hematocrit 40.7, platelet count normal. Sodium 136. Potassium, chloride, CO2 and anion gap all normal. BUN and creatinine were 5 and 0.63. His urine is essentially negative. His drug screen was negative. His salicylate level less than 1. Tylenol level less than 10. Alcohol level less than 10. Chest x-ray shows no acute cardiopulmonary process. Medications are reviewed. He is currently on Tylenol as needed, aspirin, Lipitor, Coreg, IV Lovenox for DVT prophylaxis, updrafts with DuoNeb q.i.d. and p.r.n., Keppra for the seizures, one dose of Depo-Medrol 80 mg IM for his wheezing and a nicotine patch. He is also getting Protonix for GI prophylaxis. ASSESSMENT: 1. New onset seizure disorder with respiratory failure requiring intubation, mechanical ventilation in the emergency department for mental status changes and hypoxemia, with intubation occurring on the and extubation on the . 2. History of hypertension. 3. Chronic obstructive pulmonary disease from previous tobacco use. 4. Hyperlipidemia. 5. History of myocardial infarction. 6. Previous heart catheterization with stent placement. 7. History of posttraumatic stress disorder. 8. History of heavy tobacco use. 9. History of previous heavy alcohol abuse. PLAN: The patient is on 2 L nasal cannula. He is receiving IV D5 of 0.45 at 83 mL an hour. He has been placed on Keppra by Neurology. They apparently want to do an MRI scan to rule out a brainstem infarct. The patient does not remember ever having a seizure before. States he has not drank alcohol for 3 weeks. We also gave him some Depo- Medrol 80 mg IM for his bronchospasm and put him on updrafts in form of albuterol and ipratropium bromide q.i.d. and p.r.n. We will continue to follow. The patient will stay here in the unit. No additional recommendations are made. Prognosis is guarded. He is a DNR. CRITICAL CARE TIME: 34 minutes. ALIA / MERCED: [id number] /
[2018-10-05] MEDS: IPRATROPIUM-ALBUTEROL 3 ML NEB INHALATION SCH ×3 (11:44→19:22)
[2018-10-05 12:44] LABS: Hemoglobin A1C 5.9 % (4.0-6.0)
--- NOTE | 2018-10-05 13:23 | P.CON ---
Consult Note - . Consult date: 10/05/18 Assessment/Plan:: This 68 yo male admitted to ICU for suspected seizure activity. Consult was requested for routine foot care. pt reports no foot care in many months and is bothered by discomfort in distal toes with shoe gear. PMHx significant for hyperlipidemia, COPD, tobacco abuse, HTN, remote OK, CAD. ALL: NKDA ROS: denies weakness of distal lower exts, foot drop or previous CVA. Local exam: DTR's appear symmetric with downgoing toes bilat. EHL muscle strength symmetrical. No clonus. Sharp/dull intact bilat as is vibratory sense. Dorsalis pedis pulses 1+ bilat with feeble posterior tib pulses. SKin very dry with no ulceration. Fine scaling suggestive of chronic tinea infection. No lower ext edema or distal cyanosis. Toenails markedly dystrohic, thick, very hard, elongated 1-5 bilat with subungual debris and distal onycholysis. Web spaces clear. Assessment: Chronic tinea pedis Onychomycosis PVD Plan: Onychoreduction with nail debridement 1-5 bilat feet without incident and to pt comfort. SUggest Spectazole cream both feet BID Recommended to pt regular foot care f/u as needed Thank you for involving me in the care of this patient.
--- NOTE | 2018-10-05 13:37 | HP ---
HISTORY AND PHYSICAL DATE OF SERVICE: 10/04/2018 CHIEF COMPLAINT: A 68-year-old white male with acute stroke. HISTORY OF PRESENT ILLNESS: This 68-year-old white male with flaccid paralysis of the left side of his face and eye deviation on his right eye was admitted for possible stroke. Discussed case with Neurology, who thought the patient had an acute brainstem CVA. His cholesterol pills were increased. His blood pressure pills were restarted. MRI is going to be done tomorrow of the brain. He has been seen by exceptional student education teacher in the ICU for his longstanding COPD and wheezing. CT angiogram of the brain and neck were done which were normal. He is long-standing smoker as an outpatient. Urinalysis, urine drug screen, metabolic profile normal. He is in ICU at this time. He is arousable, follows simple commands, but he is lethargic. His face is not moving well and has poor visual contact. He apparently had a stroke after his acute CVA after he collapsed at [employer] in the drive through line. No history of seizures. He has a prior stroke, COPD, nicotine addiction, hypertension, dyslipidemia, myocardial infarction, posttraumatic stress disorder, history of heart catheterization with coronary stent placement. SOCIAL HISTORY: He smokes and drinks alcohol. No drug use. MEDICATIONS: Home medications in the chart, some blood pressure pills at home, low dose cholesterol pills. I think he takes Zocor 20 mg daily and Coreg 6.25 b.i.d. ALLERGIES: Negative. REVIEW OF SYSTEMS: Fourteen-point review of systems negative as patient does talk, but he is very lethargic. PHYSICAL EXAM: Temp 97.3, pulse low 100s, respiratory rate 16 to 18, blood pressure 159 over 80s. He is a well developed male. He appears to be very drowsy. He slurs his speech. HEENT: Normocephalic, atraumatic. Some left facial weakness. Right eye has a downward lateral gaze. NECK: Supple. HEART: S1, S2. LUNGS: Show scattered wheeze and rhonchi, audible wheezing inspiratory, expiratory. EXTREMITIES: Showed no cyanosis, clubbing, edema. He has large toenails. His family would like a associate curator consult for trimming nails. No seizures since in the hospital. ASSESSMENT: 1. Acute ischemic stroke with brainstem seizure probably, acute onset induced by brainstem stroke. 2. Gaze palsy. 3. Left facial weakness. 4. Chronic obstructive pulmonary disease. 5. Hypertension. 6. Nicotine addiction. PLAN: MRI and MRA are being ordered. Speech therapy, EEG, Keppra for seizures. Pulmonary to follow for his lungs. In the ICU 45 minutes. ALIA / MERCED: [id number] /
[2018-10-05] MEDS ORDERED: ONDANSETRON 4 MG/2 ML VIAL IVP PRN (15:22)
--- NOTE | 2018-10-05 15:49 | MR ---
EXAMINATION TYPE: MR angio head wo con DATE OF EXAM: 10/05/2018 COMPARISON: CTA [place] from yesterday. HISTORY: Was unresponsive on 10-04-2018, Patient awake but confused TECHNIQUE: Time of flight images focusing on the [place] were performed without contrast.. 2-D and 3-D postprocessing imaging is performed. FINDINGS: Current exam is markedly suboptimal as there is significant motion artifact degradation. Th ere is nonvisualized flow consistent with occlusion or stenosis in the distal right vertebral artery redemonstrated. This patent left vertebral artery into basilar artery. Hypoplastic posterior communic ating arteries are redemonstrated bilaterally. There is nonvisualized flow in the left posterior cere bral artery after P1 segment. There appear to be patent flow on recent CTA study. Images of the anterior circulation show significant artifact degradation related to motion. No obviou s stenosis is seen. No large aneurysm is present. IMPRESSION: 1. Significant motion artifact degradation making evaluation suboptimal especially for tiny aneurysm. No large aneurysm is seen. Cannot exclude new stenosis or occlusion left posterior cerebral artery b eginning P2 segment. Correlate clinically. Consider direct catheter angiogram to further evaluate.
[2018-10-05] MEDS ORDERED: LORazepam 2 MG/ML INJ IV PRN (16:09)
[2018-10-05] MEDS: ATORVASTATIN 80 MG TAB PO SCH (21:22)
--- NOTE | 2018-10-05 23:55 | P.PN ---
Subjective Progress Note Date: 10/05/18 Principal diagnosis: Stroke and seizure Neurology is following on a 68 year old male for seizure and possible stroke. patient was in the drive-through line at [employer] when the staff and other customers witnessed the patient having seizure-like activity. Patient's car was in park and he had pressed the gas while having the jerking generalized tonic-clonic activity. EMS was called and transported patient to the emergency room for further workup and management. Patient was unresponsive intermittently and was intubated to protect his airway. He was later extubated in the ICU. CT scan of the brain showed an old infarct involving the right basal ganglia along with generalized atrophy and small vessel ischemic changes. CT angiogram of the brain and neck were done which were normal. Laboratory blood work for baseline purposes were normal. Patient is currently in the ICU. Patient is currently on Keppra 750 mg every 12 hours. EEG is pending. Patient did have MR angiogram of the head today however study was noted to be suboptimal stated significant motion artifact degradation making evaluation suboptimal especially for tiny aneurysm. No large aneurysm is seen. Cannot exclude new stenosis or occlusion of left posterior communicating artery beginning P2 segment. Correlate clinically. Consider direct catheter angiogram for further evaluation. MRI of the brain is still pending and will be performed on 10/06/18 unless otherwise noted. On contact, patient was resting in bed in no acute distress. Patient did have visible left-sided facial droop and some difficulty with speech. Patient was alert intermittently. Objective - Vital Signs Vital signs: Vital Signs Temp 98.5 F 10/05/18 16:00 Pulse 80 10/05/18 19:32 Resp 20 10/05/18 19:32 BP 133/72 10/05/18 19:00 Pulse Ox 96 10/05/18 19:00 Intake & Output 10/05/18 10/05/18 10/06/18 06:59 18:59 06:59 Intake Total 1079 641 20 Output Total 1385 950 75 Balance -306 -309 -55 Weight 68.2 kg 68.2 kg Intake: IV 1079 641 20 Dextrose 5%-0.45% NaCl 1, 1079 641 20 000 ml @ 83 mls/hr IV . Q12H3M [facility] Rx#:[id number] Output: Urine 1385 800 75 Emesis 150 Other: Voiding Method Indwelling Catheter Indwelling Catheter - Exam General appearance: Alert Head: Atraumatic, normocephalic, normal inspection Eyes: PERRLA, EOMI. Absent scleral icterus, conjunctival injection, nystagmus, periorbital swelling. Ear, nose and throat: Normal exam, mucous membranes moist Neck: Normal inspection, absent tenderness, lymphadenopathy. Respiratory: No increased work of breathing Cardiovascular: Regular rate, rhythm GI/abdominal: No guarding, no rigidity Extremities: moves all extremities Neurological: cranial nerves II through XII intact left facial weakness, right eye deviation laterally and downward no seizure activity noted on physical exam no pronator drift and no nystagmus. Strength: full in all 4 extremities Sensation: Left lower extremity: normal Right lower extremity: normal Left upper extremity: normal Right upper extremity:normal Psychological: Mood and Affect appropriate for setting - Labs CBC & Chem 7: 10/05/18 04:33 10/05/18 04:33 Labs: Abnormal Lab Results - Last 24 Hours (Table) 10/05/18 10/05/18 Range/Units 04:33 04:33 WBC 13.1 H (3.8-10.6) k/uL Neutrophils # 9.9 H (1.3-7.7) k/uL Sodium 136 L (137-145) mmol/L BUN 5 L (9-20) mg/dL Creatinine 0.63 L (0.66-1.25) mg/dL AST 14 L (17-59) U/L ALT 18 L (21-72) U/L Albumin 3.4 L (3.5-5.0) g/dL HDL Cholesterol 37 L (40-60) mg/dL Microbiology - Last 24 Hours (Table) 10/04/18 10:20 Gram Stain - Preliminary Sputum Sputum Culture - Preliminary Gram Neg Bacilli 10/04/18 11:00 Urine Culture - Final Urine,Catheterized Assessment and Plan (1) Stroke Narrative/Plan: The patient's left-sided facial droop and other physical exam findings including deviated gaze, it is highly likely that the patient suffered a stroke although not confirmed with imaging at this time. Patient still has MRI scheduled for tomorrow but was unable to have the study performed due to anxiety today. Patient did have MRA which did not note any large aneurysm but small aneurysm was unable to be elicited or verified due to suboptimal study due to motion artifact and degradation. Recommend continuation of speech, PT, OT. now patient can continue 325 mg aspirin daily Lipitor 80 mg. In the future we may consider transitioning the patient to either 81 mg aspirin or Plavix.continue neuro checks as implemented or every shift. Current Visit: Yes Status: Acute Code(s): I63.9 - CEREBRAL INFARCTION, UNSPECIFIED SNOMED Code(s): 141431553 (2) Facial droop Narrative/Plan: likely secondary to stroke although not confirmed on imaging Current Visit: Yes Status: Acute Code(s): R29.810 - FACIAL WEAKNESS SNOMED Code(s): 33461106 (3) Seizure Narrative/Plan: as noted above in #1. Continue seizure precautions. Current Visit: Yes Status: Acute Code(s): R56.9 - UNSPECIFIED CONVULSIONS SNOMED Code(s): 70640447 Plan: Status: Neurology will continue to follow and provide updates as needed or warranted. Contact our office with any questions I have discussed the plan of care with the physician prior to implementation and he agrees with the plan as implemented.
[2018-10-06] MEDS: CLOTRIMAZOLE 1% CREAM 15 GM TUBE TOPICAL SCH ×3 (01:39→20:19)
[2018-10-06 05:24] LABS: Basophils % (A) 0 %; Eosinophils # (A) 0.1 k/uL (0-0.7); Eosinophils % (A) 1 %; HCT 42.3 % (39.0-53.0); HGB 13.3 gm/dL (13.0-17.5); Lymphocytes % (A) 19 %; MCH 28.5 pg (25.0-35.0); MCHC 31.5 g/dL (31.0-37.0); MCV 90.7 fL (80.0-100.0); Mean Platelet Volume 6.9; Monocytes # (A) 0.9 k/uL (0-1.0); Monocytes % (A) 8 %; Neutrophils # (A) 7.1 k/uL (1.3-7.7); Neutrophils % (A) 69 %; Platelet Count 259 k/uL (150-450); RBC 4.67 m/uL (4.30-5.90); RDW 14.9 % (11.5-15.5); WBC 10.2 k/uL (3.8-10.6)
[2018-10-06 05:31] LABS: Anion Gap 7 mmol/L; Blood Urea Nitrogen 4 mg/dL (9-20); Calcium 9.1 mg/dL (8.4-10.2); Carbon Dioxide 24 mmol/L (22-30); Chloride 108 mmol/L (98-107); Glucose 92 mg/dL (74-99); Phosphorus 3.8 mg/dL (2.5-4.5); Potassium 4.1 mmol/L (3.5-5.1); Sodium 139 mmol/L (137-145)
[2018-10-06] MEDS: IPRATROPIUM-ALBUTEROL 3 ML NEB INHALATION SCH ×4 (07:59→21:06)
[2018-10-06] MEDS ORDERED: SULFAMETHOX-TMP 800-160MG 1 EACH TAB PO SCH ×2 (09:06→21:00)
[2018-10-06] MEDS: DEXTROSE 5%-0.45% NACL 1,000 ML IV SCH ×3 (09:33→22:07)
[2018-10-06] MEDS: NICOTINE 21MG/24HR PATCH TRANSDERM SCH (09:35)
[2018-10-06] MEDS: ENOXAPARIN 40 MG/0.4 ML SYRINGE SQ SCH (09:35)
[2018-10-06] MEDS: ASPIRIN 325 MG TAB PO SCH (09:35)
[2018-10-06] MEDS: CARVEDILOL 6.25 MG TAB PO SCH ×2 (09:36→16:53)
[2018-10-06] MEDS: PANTOPRAZOLE 40 MG/10 ML VIAL IV SCH (09:36)
[2018-10-06] MEDS: levETIRAcetam IV 750 MG in SODIUM CHLORIDE 0.9% 100 ML IVPB SCH (09:37)
--- NOTE | 2018-10-06 12:08 | MR ---
EXAMINATION TYPE: MR brain wo con DATE OF EXAM: 10/06/2018 COMPARISON: Correlation CT 10/04/2018 HISTORY: 68-year-old male CVA, Confusion TECHNIQUE: Multiplanar, multisequence images of the brain and brainstem were acquired without IV con trast. Diffusion weighted imaging is performed. Fast brain protocol was utilized as the patient is cl austrophobic. FINDINGS: There is restricted diffusion with low signal on ADC map and corresponding bright signal on T2/FLAIR weighted sequence involving the left thalamus and inferior left occipital lobe. There is volume loss with secondary ex vacuo enlargement of right lateral ventricle secondary to drilling supervisor tracie deep white matter infarcts on the right. Old cortical infarct right frontal temporal junction. No midline shift or extra-axial fluid collection. Mild to moderate generalized atrophy. Midline structures demonstrate normal morphology. The craniocervical junction is normal. Moderate mucosal thickening throughout the paranasal sinuses with air-fluid level on the left. Some f luid within the right mastoid air cells. Globes are grossly intact. IMPRESSION: 1. Acute infarct left thalamus and inferior left occipital lobe greater than 6 hours in duration sam esponding to the left 5TH GRADE TEACHER territory. 2. Old deep white matter infarct on the right and old cortical infarct right frontotemporal junction. 3. No midline shift or herniation. 4. Correlate for acute on chronic left maxillary sinusitis. Additional trapped fluid in the right mas toid air cells. Correlate for any mastoid change exclude mastoiditis.
--- NOTE | 2018-10-06 12:33 | PN ---
PROGRESS NOTE DATE OF SERVICE: 10/06/2018. This is a 68-year-old male that we were asked to see for ICU management and ventilator management. The patient had developed a new onset seizure with respiratory failure. He was intubated on the and extubated on October 04. The seizure was new onset. The etiology of the seizures are unclear. He also has a history of hypertension, COPD, hyperlipidemia, myocardial infarction, previous heart catheterization with stent, posttraumatic stress disorder, heavy tobacco use and previous heavy alcohol abuse. Currently, Mr. Villa is doing relatively well. He is getting no supplemental oxygen. His IV is D5 0.45 a 20 mL an hour. The patient could likely be transferred out to the general medical floor. He will not need telemetry. His sputum did show evidence of some Pseudomonas aeruginosa. We will place him on Zosyn 3.375 g q.8 hours. He did have an MRA which showed a possible occlusion of the left posterior cerebral artery. That will be followed by Neurology. The patient as I mentioned, is doing much better today than he did yesterday. He is awake and alert. PHYSICAL EXAMINATION: Vital signs are reviewed. Temperature 98, heart rate 74, respiratory rate 12, blood pressure 185/72, mean 89, and a room air saturation of 98%. Appears in no acute distress. HEENT examination is grossly unremarkable. Mucous membranes are moist. No oral lesions. Neck is supple. Full range of motion. No adenopathy or thyromegaly. Cardiovascular examination reveals regular rhythm and rate. S1, S2 normal. No murmur. Lungs sounds reveal a few scattered wheezes. No rhonchi. Breath sounds are diminished. There is slight prolongation. Abdomen is soft. Bowel sounds are heard. Extremities are intact. No cyanosis, clubbing, or edema. Skin is without rash. Neurologic examination is brief but nonfocal. Sputum from October 04 does show evidence of Pseudomonas aeruginosa. He was placed on Zosyn. LABORATORY DATA: Reviewed. White count 10.2, hemoglobin 13.3, hematocrit 42.3, platelet count 359,000, sodium 139, potassium 4.1, chloride 108 CO2 of 24. BUN and creatinine were 4 and 0.63. The rest of the labs look okay. Drug screen was negative. Medications are reviewed. ASSESSMENT: 1. New onset seizure disorder with respiratory failure requiring intubation and mechanical ventilation because of mental status changes and hypoxemia, with intubation on the , subsequent extubation on the . 2. History of hypertension. 3. Chronic obstructive pulmonary disease from previous tobacco use. 4. Hyperlipidemia. 5. History of myocardial infarction. 6. Previous heart catheterization with stent placement. 7. History of posttraumatic stress disorder. 8. History of heavy tobacco use. 9. History of previous heavy alcohol abuse. PLAN: Dated 10/06/2018. The patient will be transferred out to the general medical floor. Does not need telemetry. He was started on Zosyn 3.375 g q.8 hours for Pseudomonas. The patient is currently on IV D5 0.45 at 20 mL an hour. He is not receiving any supplemental oxygen. He is receiving updrafts. No additional recommendations are made. We will continue to follow. Prognosis is guarded. Neurology will continue to follow. I believe he is scheduled for an MRI today. ALIA / MERCED: [id number] /
[2018-10-06] MEDS: PIPERACILLIN-TAZOBACTAM 3.375 GM in SODIUM CHLORIDE 0.9% 100 ML IVPB SCH ×2 (16:53→23:40)
--- NOTE | 2018-10-06 19:11 | PN ---
PROGRESS NOTE SUBJECTIVE: 68-year-old white male whose speech is improved today and talking better over the last 24-48 hours. His confusion is improved also. He had MRI today which shows acute infarct to the left thalamus, and inferior left occipital lobe, greater than 6 hours duration to the left posterior cerebral artery territory. He has had deep white matter infarcts on the right and old cortical infarcts in the right frontal temporal region. Midline herniation and acute on chronic mastoiditis versus sinusitis. He remains stable in ICU. He will be sent to med/surg hopefully soon. Lungs show scattered wheeze. Hematology negative Homans. Psych: Fair mood and affect. Abdomen is soft. LABS: Are reviewed. ASSESSMENT: 1. Acute posterior cerebral artery stroke. 2. Nicotine addiction. 3. Chronic obstructive pulmonary disease exacerbation. Continue current treatments. Risk factor modification. High cholesterol medicines will be increased. ICU time 30 minutes. ALIA / MERCED: [id number] /
[2018-10-06] MEDS: ATORVASTATIN 80 MG TAB PO SCH (20:14)
[2018-10-06] MEDS: ASPIRIN 300 MG SUPP RECTAL SCH (21:20)
[2018-10-07] MEDS: IPRATROPIUM-ALBUTEROL 3 ML NEB INHALATION SCH ×4 (07:02→19:36)
[2018-10-07 07:20] LABS: Basophils % (A) 0 %; Eosinophils # (A) 0.1 k/uL (0-0.7); Eosinophils % (A) 2 %; HCT 41.9 % (39.0-53.0); HGB 13.3 gm/dL (13.0-17.5); Lymphocytes # (A) 2.1 k/uL (1.0-4.8); Lymphocytes % (A) 23 %; MCH 28.4 pg (25.0-35.0); MCHC 31.7 g/dL (31.0-37.0); MCV 89.5 fL (80.0-100.0); Mean Platelet Volume 6.9; Monocytes # (A) 0.6 k/uL (0-1.0); Monocytes % (A) 7 %; Neutrophils # (A) 5.9 k/uL (1.3-7.7); Neutrophils % (A) 65 %; Platelet Count 259 k/uL (150-450); RBC 4.68 m/uL (4.30-5.90); RDW 14.9 % (11.5-15.5)
[2018-10-07 07:27] LABS: Anion Gap 8 mmol/L; Blood Urea Nitrogen 7 mg/dL (9-20); Calcium 9.3 mg/dL (8.4-10.2); Carbon Dioxide 26 mmol/L (22-30); Chloride 105 mmol/L (98-107); Glucose 94 mg/dL (74-99); Phosphorus 3.7 mg/dL (2.5-4.5); Potassium 4.5 mmol/L (3.5-5.1); Sodium 139 mmol/L (137-145)
[2018-10-07] MEDS: ENOXAPARIN 40 MG/0.4 ML SYRINGE SQ SCH (08:00)
[2018-10-07] MEDS: PIPERACILLIN-TAZOBACTAM 3.375 GM in SODIUM CHLORIDE 0.9% 100 ML IVPB SCH ×2 (08:00→18:36)
[2018-10-07] MEDS: NICOTINE 21MG/24HR PATCH TRANSDERM SCH (08:01)
[2018-10-07] MEDS: ASPIRIN 325 MG TAB PO SCH (08:01)
[2018-10-07] MEDS: CARVEDILOL 6.25 MG TAB PO SCH ×2 (08:01→19:16)
[2018-10-07] MEDS: PANTOPRAZOLE 40 MG TABLET PO SCH (08:01)
--- NOTE | 2018-10-07 11:36 | EEG ---
ELECTROENCEPHALOGRAM REPORT DATE OF SERVICE: 10/04/2018. REASON FOR TESTING: Altered mental status, possible seizure. DESCRIPTION OF THE PROCEDURE: This EEG was performed using a 21 channel digital electroencephalograph, following international 10-20 system. DESCRIPTION OF THE RECORDING: From the beginning of the tracing, and with patient's eyes closed, the background rhythm was mostly consisting of 8 hertz alpha frequency in the posterior occipital leads. No obvious asymmetry is seen. Occasional movement and muscle artifacts are noticed. Photic stimulation was performed with a minimal driving response seen. No pathological waves were elicited. Hyperventilation was not performed. The patient remains awake throughout the tracing. Occasional lead artifacts are seen. No epileptiform discharges were noticed. His EKG lead showed a regular rate and rhythm. INTERPRETATION: This awake EEG can be considered within normal limits. There was no asymmetry seen. No epileptiform discharges were noticed. The absence of epileptiform discharges does not rule out the diagnosis of epilepsy; therefore clinical correlation is recommended. MMBIENVENIDOL / IJRufino: [id number] /
[2018-10-07] MEDS: CLOTRIMAZOLE 1% CREAM 15 GM TUBE TOPICAL SCH ×2 (13:48→22:05)
--- NOTE | 2018-10-07 16:48 | P.PN ---
Subjective Progress Note Date: 10/07/18 Principal diagnosis: Stroke and seizure Neurology is following on a 68 year old male for seizure and possible stroke. patient was in the drive-through line at [employer] when the staff and other customers witnessed the patient having seizure-like activity. Patient's car was in park and he had pressed the gas while having the jerking generalized tonic-clonic activity. EMS was called and transported patient to the emergency room for further workup and management. Patient was unresponsive intermittently and was intubated to protect his airway. He was later extubated in the ICU. CT scan of the brain showed an old infarct involving the right basal ganglia along with generalized atrophy and small vessel ischemic changes. CT angiogram of the brain and neck were done which were normal. Laboratory blood work for baseline purposes were normal. Patient is currently in the ICU. Patient is currently on Keppra 750 mg every 12 hours. EEG is pending. Patient did have MR angiogram of the head today however study was noted to be suboptimal stated significant motion artifact degradation making evaluation suboptimal especially for tiny aneurysm. No large aneurysm is seen. Cannot exclude new stenosis or occlusion of left posterior communicating artery beginning P2 segment. Correlate clinically. Consider direct catheter angiogram for further evaluation. MRI of the brain is still pending and will be performed on 10/06/18 unless otherwise noted. On contact, patient was resting in bed in no acute distress. Patient did have visible left-sided facial droop and some difficulty with speech. Patient was alert intermittently. Interval Update 10/07/18: Patient is alert and oriented 3, resting in bed in no acute distress. Patient has had no seizure-like activity per nursing staff. Patient did have MRI of the brain. Patient did have 325 mg aspirin as well as Lipitor already started. PT, OT and speech of our treatment consults it. Patient is overall stable at this time. Based on MRI results we now have confirmed stroke. Patient will need planning for rehabilitative placement. We Will make the following changes to his medications: 325 mg aspirin will be stopped and replaced with Plavix 75 mg by mouth daily. Lipitor will remain unchanged as implemented. MRI Brain: acute infarct left thalamus and inferior left occipital lobe greater than 6 hours in duration corresponding to left METAL GRINDER territory. Old deep white matter infarct on the right and old cortical infarct right frontal temporal junction. No midline shift or herniation. Correlate for acute on chronic left maxillary sinusitis. Additional trapped fluid in the right mastoid air cells. Correlate for any mastoid change to exclude mastoiditis. Interval update 10/06/18: Patient off floor at MRI Objective - Vital Signs Vital signs: Vital Signs Temp 97.2 F L 10/07/18 12:31 Pulse 79 10/07/18 16:00 Resp 16 10/07/18 16:00 BP 145/80 10/07/18 12:31 Pulse Ox 94 L 10/07/18 12:31 Intake & Output 10/06/18 10/07/18 10/07/18 18:59 06:59 18:59 Intake Total 40 590 664 Output Total 375 600 Balance -335 590 64 Weight 65.4 kg 65.4 kg Intake: IV 40 664 Dextrose 5%-0.45% NaCl 1, 40 664 000 ml @ 83 mls/hr IV . Q12H3M [facility] Rx#:[id number] Oral 590 Output: Urine 375 300 Emesis 300 Other: Voiding Method Indwelling Catheter Toilet Toilet Urinal Urinal # Voids 1 1 - Exam General appearance: Alert Head: Atraumatic, normocephalic, normal inspection Eyes: PERRLA, EOMI. Absent scleral icterus, conjunctival injection, nystagmus, periorbital swelling. Ear, nose and throat: Normal exam, mucous membranes moist Neck: Normal inspection, absent tenderness, lymphadenopathy. Respiratory: No increased work of breathing Cardiovascular: Regular rate, rhythm GI/abdominal: No guarding, no rigidity Extremities: moves all extremities Neurological: cranial nerves II through XII intact left facial weakness, right eye deviation laterally and downward no seizure activity noted on physical exam no pronator drift and no nystagmus. Strength: upper and lower extremity weakness Sensation: Left lower extremity: normal Right lower extremity: normal Left upper extremity: normal Right upper extremity:normal Psychological: Mood and Affect appropriate for setting - Labs CBC & Chem 7: 10/07/18 07:09 10/07/18 07:09 Labs: Abnormal Lab Results - Last 24 Hours (Table) 10/07/18 Range/Units 07:09 BUN 7 L (9-20) mg/dL Microbiology - Last 24 Hours (Table) 10/04/18 10:20 Gram Stain - Final Sputum Sputum Culture - Final Pseudomonas aeruginosa Assessment and Plan (1) Stroke Narrative/Plan: The patient's left-sided facial droop and other physical exam findings including deviated gaze, it is highly likely that the patient suffered a stroke although not confirmed with imaging at this time. Patient head MRI performed with findings as noted, confirming presence of new acute stroke. Patient did have MRA which did not note any large aneurysm but small aneurysm was unable to be elicited or verified due to suboptimal study due to motion artifact and degradation. Recommend continuation of speech, PT, OT. Patient to be continued on Plavix 75 mg daily, Lipitor 80 mg. Current Visit: Yes Status: Acute Code(s): I63.9 - CEREBRAL INFARCTION, UNSPECIFIED SNOMED Code(s): 677970472 (2) Seizure Current Visit: Yes Status: Acute Code(s): R56.9 - UNSPECIFIED CONVULSIONS SNOMED Code(s): 37636389 (3) Facial droop Narrative/Plan: secondary to stroke Current Visit: Yes Status: Acute Code(s): R29.810 - FACIAL WEAKNESS SNOMED Code(s): 37638996 Plan: Patient does have stroke confirmed on imaging as noted in HPI. Patient can be scheduled for placement at rehab facility or rehabilitative efforts can begin being coordinated in the outpatient setting. Patient to remain on medications as noted above. Patient can be cleared for discharge from a neurological standpoint. Patient to follow-up in the office within 10-14 days post discharge for follow- up appointment I have discussed the plan of care with the physician prior to implementation and he agrees with the plan as implemented.
[2018-10-07] MEDS: ACETAMINOPHEN TAB 500 MG TAB PO PRN (19:17)
[2018-10-07] MEDS: DEXTROSE 5%-0.45% NACL 1,000 ML IV SCH (19:22)
[2018-10-07] MEDS: ATORVASTATIN 80 MG TAB PO SCH (21:34)
--- NOTE | 2018-10-07 23:13 | PN ---
PROGRESS NOTE SUBJECTIVE: 68-year-old white male was admitted to the hospital with acute stroke in posterior cerebral artery territory. His speech is improved. His movements improved. He is able to swallow. He is refusing to go the [facility]. He has not been up ambulating well at this time. Remains on Lovenox daily, Keppra for seizures. He had a stroke, seizure, nicotine patch, GERD. MEDICINES: Zosyn for aspiration pneumonia, DuoNeb for COPD, for hypertension, Lipitor for hypercholesterolemia. OBJECTIVE: CARDIOVASCULAR: S1 and S2. LUNGS: Scattered rhonchi and wheeze. HEMATOLOGY: Negative Homans. PSYCH: Fair mood and affect. ASSESSMENT: Posterior cerebral artery stroke. PLAN: Continue with PT and OT. Continue Plavix. Possible discharge home in the next 24 to 48 hours. Awaiting for carotid surgery recommendations from specialists, etc. I would like to put him in the rehab center but he apparently wants to go home. MMBIENVENIDOL / IJN: [id number] /
[2018-10-07 23:22] VITALS: RESP 18
[2018-10-08] MEDS: PIPERACILLIN-TAZOBACTAM 3.375 GM in SODIUM CHLORIDE 0.9% 100 ML IVPB SCH ×2 (00:15→07:39)
[2018-10-08] MEDS: DEXTROSE 5%-0.45% NACL 1,000 ML IV SCH ×2 (03:15→16:03)
[2018-10-08] MEDS: IPRATROPIUM-ALBUTEROL 3 ML NEB INHALATION SCH ×3 (07:19→15:57)
[2018-10-08] MEDS: ENOXAPARIN 40 MG/0.4 ML SYRINGE SQ SCH (07:39)
[2018-10-08] MEDS: NICOTINE 21MG/24HR PATCH TRANSDERM SCH (07:39)
[2018-10-08] MEDS: PANTOPRAZOLE 40 MG TABLET PO SCH (07:40)
[2018-10-08] MEDS: CLOTRIMAZOLE 1% CREAM 15 GM TUBE TOPICAL SCH (07:40)
[2018-10-08] MEDS: CARVEDILOL 6.25 MG TAB PO SCH (07:40)
[2018-10-08] MEDS ORDERED: CLOPIDOGREL 75 MG TAB PO SCH (09:00)
[2018-10-08 12:22] VITALS: BP 118/64; PULSE 78; TEMP 97.6
[2018-10-08] MEDS: ACETAMINOPHEN TAB 500 MG TAB PO PRN (15:46)
--- NOTE | 2018-10-09 08:23 | DS ---
DISCHARGE SUMMARY DISCHARGE DIAGNOSES: 1. Acute posterior cerebral artery stroke of the occipital and brainstem area. 2. Hypertension. 3. Nicotine addiction. 4. Stroke induced seizure. 5. Gastroesophageal reflux disease. 6. Chronic obstructive pulmonary disease. 7. Alcoholism. HOME MEDICATIONS: 1. Tylenol p.r.n. for fever, pain. 2. Lipitor 80 mg q.h.s. 3. Coreg 6.25 b.i.d. 4. Plavix 75 mg daily. 5. Keppra 750 b.i.d. 6. Nicotine patch 21 mg daily. 7. DuoNeb updraft q.i.d. 8. Protonix 40 mg daily. CONDITION: Stable. FOLLOWUP: Follow up with Dr. Akhtar ) in a week. HOSPITAL COURSE OF EVENTS: This is a white male who was admitted with a stroke. Medications were readjusted. He will go home on Augmentin 875 1 b.i.d. for aspiration pneumonia and Keppra for new onset seizures and high dose medications for strokes. Nicotine patch to quit smoking. Please follow up as an outpatient. MMODL / IJN: [id number] /
== END 2018-10-08 16:37 | disposition home or self-care (01) | DRG 64 ==
LOC: EC 10:03 → 2SICU 13:32 → 3NMEDONC 10-06 21:06
PROVIDERS: ADMIT Family Medicine; ATTEND Family Medicine
PROC: 0BH17EZ Insertion of Endotracheal Airway into Trachea, Via Natural or Artificial Opening (ICD-10-PCS; principal; 2018-10-04)
PROC: 5A1935Z Respiratory Ventilation, Less than 24 Consecutive Hours (ICD-10-PCS; 2018-10-04)
DX: I63.531 Cerebral infarction due to unspecified occlusion or stenosis of right posterior cerebral artery (principal); J96.01 Acute respiratory failure with hypoxia; J69.0 Pneumonitis due to inhalation of food and vomit; J44.1 Chronic obstructive pulmonary disease with (acute) exacerbation; R56.9 Unspecified convulsions; R29.722 NIHSS score 22; K21.9 Gastro-esophageal reflux disease without esophagitis; I10 Essential (primary) hypertension; R29.810 Facial weakness; B35.1 Tinea unguium; B35.3 Tinea pedis; E78.00 Pure hypercholesterolemia, unspecified; E78.5 Hyperlipidemia, unspecified; F10.20 Alcohol dependence, uncomplicated; F17.200 Nicotine dependence, unspecified, uncomplicated; F43.10 Post-traumatic stress disorder, unspecified; H51.0 Palsy (spasm) of conjugate gaze; I25.10 Atherosclerotic heart disease of native coronary artery without angina pectoris; I73.9 Peripheral vascular disease, unspecified; I25.2 Old myocardial infarction; Z79.51 Long term (current) use of inhaled steroids; Z79.899 Other long term (current) drug therapy; Z86.73 Personal history of transient ischemic attack (TIA), and cerebral infarction without residual deficits; Z95.5 Presence of coronary angioplasty implant and graft
CPT/HCPCS: 31500; 36415; 36600; 51701; 70450; 70496; 70498; 70544; 70551; 71045; 80048; 80053; 80061; 80306; 80320; 81001; 82140; 82550; 82553; 82805; 83036; 83090; 83520; 83605; 83735; 83880; 84100; 84484; 85025; 85610; 85730; 87070; 87077; 87086; 87186; 87205; 93005; 94002; 94640; 94760; 95816; 96360; 96361; 96374; 99291